=== PATIENT | male | born 1990 | race Two or more races ===

== ENCOUNTER 2017-06-18 12:40 | Observation (INO) | payer SELFPAY ==
[2017-06-18] MEDS ORDERED: Sodium Chloride 0.9% 10 ML Syringe FLUSH PRN (12:50)
[2017-06-18 13:26] LABS: CHLORIDE,CL 104 mmol/L (98-107); SODIUM,NA 138 mmol/L (136-145)
[2017-06-18] MEDS ORDERED: Aspirin 81 MG Tab.Chew PO ONE ×2 (13:27→14:14)
--- NOTE | 2017-06-18 13:45 | EDM.PDOC ---
ED HPI GENERAL MEDICAL PROBLEM - General Chief Complaint: General Stated Complaint: chills, chest pain Time Seen by Provider: 06/18/17 12:50 Source of Information: Reports: Patient History Limitations: Reports: Language Barrier (Sammarinese speaking only) - History of Present Illness INITIAL COMMENTS - FREE TEXT/NARRATIVE: Patient arrived to ER saying he was feeling bad last night with diaphoresis and intermittent chest pain. [place] chills and 'like my blood pressure dropped'. Came to ER to be evaluated. Onset: Gradual Duration: Day(s): (Past 2 days), Getting Worse (Last night patient states that he developed diaphoresis some chest discomfort stated was 7 out of 10 and stabbing in nature mid chest does not radiate) Location: Reports: Chest Severity: Moderate Improves with: Reports: None Worsens with: Reports: Breathing Associated Symptoms: Reports: Chest Pain, Diaphoresis, Weakness Middle Chest Pain Score (Numeric/FACES): 3 - Related Data Allergies Allergy/AdvReac Type Severity Reaction Status Date / Time No Known Allergies Allergy Verified 06/18/17 13:25 Home Meds: Home Meds metFORMIN [Glucophage] 850 mg PO BIDMEALS #60 tablet 06/19/17 [Rx] ED ROS GENERAL - Review of Systems Review Of Systems: See Below Constitutional: Reports: Fatigue, Diaphoresis HEENT: Reports: No Symptoms Respiratory: Reports: Shortness of Breath Cardiovascular: Reports: Chest Pain Endocrine: Reports: No Symptoms GI/Abdominal: Reports: No Symptoms : Reports: Other (Pain on urination) Musculoskeletal: Reports: No Symptoms Skin: Reports: No Symptoms Neurological: Reports: No Symptoms Psychiatric: Reports: No Symptoms ED EXAM, GENERAL - Physical Exam Exam: See Below Exam Limited By: No Limitations General Appearance: Alert, WD/WN, Mild Distress Ears: Normal External Exam, Normal Canal, Hearing Grossly Normal, Normal TMs Ear Exam: Bilateral Ear: Auricle Normal, Canal Normal, TM normal Nose: Normal Inspection, Normal Mucosa, No Blood Throat/Mouth: Normal Inspection, Normal Lips, Normal Teeth, Normal Gums, Normal Oropharynx, Normal Voice, No Airway Compromise Head: Atraumatic, Normocephalic Neck: Normal Inspection, Supple, Non-Tender, Full Range of Motion Respiratory/Chest: No Respiratory Distress, Lungs Clear, Normal Breath Sounds, No Accessory Muscle Use, Chest Non-Tender Cardiovascular: Normal Peripheral Pulses, Regular Rate, Rhythm, No Murmur, Bradycardia GI/Abdominal: Normal Bowel Sounds, Soft, Non-Tender, No Organomegaly, No Distention, No Abnormal Bruit, No Mass (Male) Exam: Deferred Rectal (Males) Exam: Deferred Extremities: Normal Inspection, Normal Range of Motion, Non-Tender, Normal Capillary Refill, No Pedal Edema Psychiatric: Normal Affect, Normal Mood Skin Exam: Warm, Dry, Intact, Normal Color, No Rash Course - Vital Signs Last Recorded V/S: Last Vital Signs Temp 97.8 F 06/19/17 12:00 Pulse 70 06/19/17 12:00 Resp 18 06/19/17 12:00 BP 134/76 06/19/17 12:00 Pulse Ox 98 06/19/17 08:00 - Orders/Labs/Meds Labs: Laboratory Tests 06/18/17 06/18/17 06/18/17 Range/Units 13:05 13:05 13:05 WBC 11.8 H (4.0-10.2) K/uL RBC 5.49 H (4.33-5.41) M/uL Hgb 16.9 H (13.1-16.8) g/dL Hct 49.3 H (39.0-49.0) % MCV 89.8 (84.0-98.0) fL MCH 30.8 (28.2-33.3) pg MCHC 34.3 (31.7-36.0) g/dL RDW 12.7 (11.2-14.1) % Plt Count 260 (150-350) K/uL Neut % (Auto) 67.5 (45.0-80.0) % Lymph % (Auto) 25.4 (10.0-50.0) % [place] % (Auto) 6.0 (2.0-14.0) % Eos % (Auto) 0.9 (0.0-5.0) % Baso % (Auto) 0.2 (0.0-2.0) % Neut # (Auto) 7.96 H (1.40-7.00) K/uL Lymph # (Auto) 2.99 (0.50-3.50) K/uL [place] # (Auto) 0.71 (0.00-1.00) K/uL Eos # (Auto) 0.11 (0.00-0.50) K/uL Baso # (Auto) 0.02 (0.00-0.20) K/uL D-Dimer, Quantitative (0-400) ng/mL Sodium 138 (136-145) mmol/L Potassium 3.8 (3.5-5.1) mmol/L Chloride 104 (98-107) mmol/L Carbon Dioxide 24.0 (21.0-32.0) mmol/L BUN 12 (7-18) mg/dL Creatinine 0.66 (0.51-1.17) mg/dL Est Cr Clr Drug Dosing TNP Estimated GFR (MDRD) > 60 mL/min Glucose 210 H (74-106) mg/dL Calcium 8.0 L (8.5-10.1) mg/dL Troponin I 0.003 (0.000-0.056) ng/mL 06/18/17 Range/Units 13:05 WBC (4.0-10.2) K/uL RBC (4.33-5.41) M/uL Hgb (13.1-16.8) g/dL Hct (39.0-49.0) % MCV (84.0-98.0) fL MCH (28.2-33.3) pg MCHC (31.7-36.0) g/dL RDW (11.2-14.1) % Plt Count (150-350) K/uL Neut % (Auto) (45.0-80.0) % Lymph % (Auto) (10.0-50.0) % [place] % (Auto) (2.0-14.0) % Eos % (Auto) (0.0-5.0) % Baso % (Auto) (0.0-2.0) % Neut # (Auto) (1.40-7.00) K/uL Lymph # (Auto) (0.50-3.50) K/uL [place] # (Auto) (0.00-1.00) K/uL Eos # (Auto) (0.00-0.50) K/uL Baso # (Auto) (0.00-0.20) K/uL D-Dimer, Quantitative < 100 (0-400) ng/mL Sodium (136-145) mmol/L Potassium (3.5-5.1) mmol/L Chloride (98-107) mmol/L Carbon Dioxide (21.0-32.0) mmol/L BUN (7-18) mg/dL Creatinine (0.51-1.17) mg/dL Est Cr Clr Drug Dosing Estimated GFR (MDRD) mL/min Glucose (74-106) mg/dL Calcium (8.5-10.1) mg/dL Troponin I (0.000-0.056) ng/mL Meds: Medications Discontinued Medications Generic Name Dose Route Start Last Admin Trade Name Freq PRN Reason Stop Dose Admin Aspirin 324 mg 06/18/17 13:27 06/18/17 13:38 Aspirin PO 06/18/17 13:28 324 mg ONETIME ONE Administration Aspirin 324 mg 06/18/17 14:14 06/18/17 17:12 Aspirin PO 06/18/17 14:15 Not Given ONETIME ONE Sodium Chloride 1,000 mls @ 250 mls/hr 06/18/17 13:30 06/18/17 18:00 Normal Saline IV 250 mls/hr ASDIRECTED DOROTHEA Administration Sodium Chloride 1,000 mls @ 150 mls/hr 06/18/17 19:25 06/19/17 01:22 Normal Saline IV 150 mls/hr ASDIRECTED DOROTHEA Administration Metformin HCl 850 mg 06/19/17 17:30 Glucophage PO BIDMEALS DOROTHEA Sodium Chloride 10 ml 06/18/17 12:50 06/18/17 13:49 Saline Flush FLUSH 10 ml ASDIRECTED PRN Administration Keep Vein Open Departure - Departure Time of Disposition: 14:00 Disposition: Refer to Observation Condition: Fair Clinical Impression: Chest pain Qualifiers: Chest pain type: unspecified Qualified Code(s): R07.9 - Chest pain, unspecified - Discharge Information - Problem List & Annotations (1) Chest pain SNOMED Code(s): 77146743 Code(s): R07.9 - CHEST PAIN, UNSPECIFIED Status: Acute Qualifiers: Chest pain type: chest pain on breathing Qualified Code(s): R07.1 - Chest pain on breathing (2) Bradycardia SNOMED Code(s): 06842021 Code(s): R00.1 - BRADYCARDIA, UNSPECIFIED Status: Acute - Problem List Review Problem List Initiated/Reviewed/Updated: Yes - Assessment/Plan Admission H&P: Please use this note as an admission H&P Plan: Will refer patient to OBS for chest pain. Patient is on a-fib with symptomatic bradycardia.
[2017-06-18] MEDS: Sodium Chloride 0.9% 1,000 ML IV SCH ×2 (13:46→18:00)
[2017-06-18] MEDS ORDERED: Sodium Chloride 0.9% 1,000 ML IV SCH (19:25)
--- NOTE | 2017-06-19 11:31 | PCM.DCSUM1 ---
Discharge Summary - Hospital Course Free Text/Narrative:: Who presented with symptomatic bradycardia states that he was home not feeling well lightheaded and couldn't get up till himself to the hospital to receive care initially his heart rate was in the 40s and patient was to monitor after evaluate him in the ER we admitted him for observation is a diabetic and at this time doing much better heart rate up into the 80s and 90s asymptomatic - Discharge Data Discharge Date: 06/19/17 Discharge Disposition: Home, Self-Care 01 Preliminary Cause of *Q: Other_Special Instruction Condition: Good - Discharge Diagnosis/Problem(s) (1) Bradycardia SNOMED Code(s): 19744553 ICD Code: R00.1 - BRADYCARDIA, UNSPECIFIED Status: Acute Current Visit: Yes (2) Bradycardia SNOMED Code(s): 53598200 ICD Code: R00.1 - BRADYCARDIA, UNSPECIFIED Status: Acute Current Visit: Yes (3) Diabetes SNOMED Code(s): 58448162 ICD Code: E11.9 - TYPE 2 DIABETES MELLITUS WITHOUT COMPLICATIONS Status: Acute Current Visit: Yes Qualifiers: Diabetes mellitus type: type 2 - Patient Instructions Diet: Heart Healthy Diet Driving: May Drive Today Showering/Bathing: February Shower Notify Provider of: Fever Other/Special Instructions: FOLLOW UP WITH PRIMARY IN ONE WEEK - Discharge Plan Patient Handouts: Bradycardia, Nonspecific Chest Pain, [id number], Chest Pain Observation Forms: ED Department Discharge Referrals: PCP,None [Primary Care Provider] - Khari Lozoya MD [Emergency Provider] - - Discharge Summary/Plan Comment Discharge Summary/Plan Comment: Patient should follow-up with Dr. Lozoya in 3 weeks time around July 15 referred to cardiology - General Info Functional Status: Reports: Ambulating - Review of Systems General: Reports: No Symptoms HEENT: Reports: No Symptoms Pulmonary: Reports: No Symptoms Cardiovascular: Reports: No Symptoms Gastrointestinal: Reports: No Symptoms Genitourinary: Reports: No Symptoms Musculoskeletal: Reports: No Symptoms Skin: Reports: No Symptoms Neurological: Reports: No Symptoms Psychiatric: Reports: No Symptoms - Patient Data Vitals - Most Recent: Last Vital Signs Temp 98.1 F 06/19/17 08:00 Pulse 59 L 06/19/17 08:00 Resp 16 06/19/17 08:00 BP 136/93 H 06/19/17 08:00 Pulse Ox 98 06/19/17 08:00 Weight - Most Recent: 242 lb 1.6 oz I&O - Last 24 hours: Intake & Output 06/18/17 06/19/17 06/19/17 22:59 06:59 14:59 Intake Total 1360 1960 360 Balance 1360 1960 360 Lab Results - Last 24 hrs: Laboratory Results - last 24 hr 06/18/17 06/18/17 06/18/17 Range/Units 18:00 18:00 19:00 Troponin I 0.004 (0.000-0.056) ng/mL Specimen Type Urincc Urine Color Yellow Urine Appearance Clear Urine pH 5.5 (5.0-9.0) Ur Specific [place] 1.010 (1.005-1.030) Urine Protein Negative (NEGATIVE) mg/dL Urine Glucose (UA) 250 H (NEGATIVE) mg/dL Urine Ketones Negative (NEGATIVE) mg/dL Urine Occult Blood Negative (NEGATIVE) Urine Nitrite Negative (NEGATIVE) Urine Bilirubin Negative (NEGATIVE) Urine Urobilinogen 0.2 (0.2-1.0) E.U./dL Ur Leukocyte Esterase Negative (NEGATIVE) Urine RBC 0-5 /HPF Urine WBC 0-5 /HPF Ur Epithelial Cells Few /LPF Urine Bacteria Not seen (NONE TO FEW) /HPF Urine Other See note H Urine Opiates Screen Negative (NEGATIVE) Urine Methadone Screen Negative (NEGATIVE) U Acetaminophen Screen Negative (NEGATIVE) Ur Barbiturates Screen Negative (NEGATIVE) Ur Tricyclics Screen Negative (NEGATIVE) Ur Phencyclidine Scrn Negative (NEGATIVE) Ur Amphetamine Screen Negative (NEGATIVE) U Methamphetamines Scrn Negative (NEGATIVE) U Benzodiazepines Scrn Negative (NEGATIVE) U Cocaine Metab Screen Negative (NEGATIVE) U Marijuana (THC) Screen Negative (NEGATIVE) 06/19/17 Range/Units 01:05 Troponin I 0.005 (0.000-0.056) ng/mL Specimen Type Urine Color Urine Appearance Urine pH (5.0-9.0) Ur Specific [place] (1.005-1.030) Urine Protein (NEGATIVE) mg/dL Urine Glucose (UA) (NEGATIVE) mg/dL Urine Ketones (NEGATIVE) mg/dL Urine Occult Blood (NEGATIVE) Urine Nitrite (NEGATIVE) Urine Bilirubin (NEGATIVE) Urine Urobilinogen (0.2-1.0) E.U./dL Ur Leukocyte Esterase (NEGATIVE) Urine RBC /HPF Urine WBC /HPF Ur Epithelial Cells /LPF Urine Bacteria (NONE TO FEW) /HPF Urine Other Urine Opiates Screen (NEGATIVE) Urine Methadone Screen (NEGATIVE) U Acetaminophen Screen (NEGATIVE) Ur Barbiturates Screen (NEGATIVE) Ur Tricyclics Screen (NEGATIVE) Ur Phencyclidine Scrn (NEGATIVE) Ur Amphetamine Screen (NEGATIVE) U Methamphetamines Scrn (NEGATIVE) U Benzodiazepines Scrn (NEGATIVE) U Cocaine Metab Screen (NEGATIVE) U Marijuana (THC) Screen (NEGATIVE) Med Orders - Current: Current Medications Sodium Chloride (Normal Saline) 1,000 mls @ 150 mls/hr IV ASDIRECTED DOROTHEA Last Admin: 06/19/17 01:22 Dose: 150 mls/hr Sodium Chloride (Saline Flush) 10 ml FLUSH ASDIRECTED PRN PRN Reason: Keep Vein Open Last Admin: 06/18/17 13:49 Dose: 10 ml Discontinued Medications Aspirin (Aspirin) 324 mg PO ONETIME ONE Stop: 06/18/17 13:28 Last Admin: 06/18/17 13:38 Dose: 324 mg Aspirin (Aspirin) 324 mg PO ONETIME ONE Stop: 06/18/17 14:15 Last Admin: 06/18/17 17:12 Dose: Not Given Sodium Chloride (Normal Saline) 1,000 mls @ 250 mls/hr IV ASDIRECTED DOROTHEA Last Admin: 06/18/17 18:00 Dose: 250 mls/hr - Exam General: Reports: Alert, Oriented HEENT: Reports: Pupils Equal, Pupils Reactive, EOMI, Mucous Membr. Moist/[place] Neck: Reports: Supple Lungs: Reports: Clear to Auscultation, Normal Respiratory Effort Cardiovascular: Reports: Regular Rate, Regular Rhythm GI/Abdominal Exam: Normal Bowel Sounds, Soft, Non-Tender, No Organomegaly, No Distention, No Abnormal Bruit, No Mass, Pelvis Stable (Male) Exam: No Hernia, Normal Inspection, Normal Prostate, Circumcised Back Exam: Reports: Normal Inspection, Full Range of Motion Extremities: Normal Inspection, Normal Range of Motion, Non-Tender, No Pedal Edema, Normal Capillary Refill Skin: Reports: Warm, Dry, Intact Wound/Incisions: Reports: Healing Well Neurological: Reports: No New Focal Deficit Psy/Mental Status: Reports: Alert, Normal Affect, Normal Mood Physical Findings Comments:: Patient stable asymptomatic at this time we'll discharge home *Q Meaningful Use (DIS) - VTE *Q VTE Criteria *Q: - Stroke *Q Stroke Criteria *Q: - AMI *Q AMI Criteria *Q:
[2017-06-19 12:14] LABS: CHLORIDE,CL 108 mmol/L (98-107); SODIUM,NA 140 mmol/L (136-145)
[2017-06-19 12:34] VITALS: BP 134/76
== END 2017-06-19 12:30 | disposition home or self-care (01) ==
LOC: LL.ED 12:40 → LL.MS 14:00
PROVIDERS: ADMIT Family Medicine; ATTEND Family Medicine
DX: R00.1 Bradycardia, unspecified (principal); R07.89 Other chest pain; E11.9 Type 2 diabetes mellitus without complications; Z79.84 Long term (current) use of oral hypoglycemic drugs; Z79.82 Long term (current) use of aspirin
CPT/HCPCS: 36415; 71020; 80048; 80305; 81001; 83036; 84484; 85025; 85379; 93005; 96360; 96361; 99285; A9270; G0378; J7030; J7050; 99217; 99219